=== PATIENT | female | born 1995 | race Caucasian/White ===

== ENCOUNTER 2024-01-08 18:45 | Emergency (ER) | payer BC, SELFPAY ==
[2024-01-08 18:47] VITALS: BP 146/85
--- NOTE | 2024-01-08 20:36 | ED.GENMED ---
History of Present Illness
General
Chief Complaint: Skin Surface Trauma
Source: patient
Exam Limitations: none
Time Seen by Provider: 01/08/24 20:09
Nursing documentation reviewed up to this point in time: agreed with
History of Present Illness
History of Present Illness:
28-year-old female presenting to the emergency department with laceration to left thumb. This occurred about 30 minutes prior to arrival as she was slicing an apple in her kitchen. She states she missed the apple and sliced her thumb. She was
able to somewhat control bleeding although came to the emergency department for further evaluation. Patient denies any numbness/tingling in digit or left hand. No other associated injuries. Last tetanus shot was 2 years ago. Patient is not on
any blood thinners.
Past History
Past History
ED Past Medical History: Other (Irregular menses. ovarian cyst, dehydration, migraines) and Other (renal stones)
ED Past Surgical History: None
Social History
Tobacco: Non-smoker
Alcohol: None
Personal: Single
Living: with family
Review of Systems
Review of Systems
Allergies reviewed?: Yes
All Other Systems: ROS reviewed and negative except as documented in HPI and ROS
Phy Exam
Physical Exam
Physical Exam:
Vitals: Patient's vital signs are stable. Afebrile
General: Patient is well appearing, no acute distress
Skin: Approximately 2 cm curved laceration to palmar aspect of medial distal thumb. Very minimal involvement of distal nail. No subungual hematoma.
Head: Normocephalic, atraumatic
Throat: Protecting airway
Neck: Normal ROM, no cervical spine tenderness
Cardiac: Regular rate
Pulm: No apparent respiratory distress
Abdomen: Nondistended
Extremities: Small laceration to left thumb as described above. Patient has full ability to flex and extend left thumb at both MCP and IP joints against resistance. Sensation fully intact. Capillary refill less than 2 seconds
Neuro: Grossly intact
Psychiatric: Normal affect.
Course
Vital Signs
Initial and Last Documented VS:
Initial Vital Signs
Temp Pulse Resp BP Pulse Ox
98.8 F 81 18 146/85 98
01/08/24 18:47 01/08/24 18:47 01/08/24 18:47 01/08/24 18:47 01/08/24 18:47
Last Documented Vital Signs
Temp Pulse Resp BP Pulse Ox
98.8 F 81 18 146/85 98
01/08/24 18:47 01/08/24 18:47 01/08/24 18:47 01/08/24 18:47 01/08/24 18:47
Procedures
Laceration Closure
Left Thumb:
Status of Wound: clean
Size of Wound in cm: 2
Description of Wound Edges: sharp
Preparation: cleaned with saline and cleaned with Betadine
Anesthesia: 1% Lidocaine
Revision/Debridement: routine- no revision
Wound exploration: explored to base- no FB
Type of Closure: single layer closure and interrupted sutures (3)
Skin Closure Material: 5-0 nylon
Number of sutures: 3
MDM/Problems Addressed
Differential Diagnosis Includes:
Not limited to: Laceration, etc.
MDM/Problems Addressed:
28-year-old female presenting with left thumb laceration occurring approximately 30 minutes prior to arrival slicing an apple in her kitchen. No other associated injuries. No numbness/tingling in left thumb. Patient has full range of motion left
thumb. Tetanus shot is up-to-date. Vital stable. On exam�there is an approximately 2 cm laceration at palmar aspect of left medial distal thumb. Very minimal involvement in distal nail. No involvement of nailbed. Minimal bleeding. No evidence
of tendon involvement. Left thumb neurovascular intact. Wound was irrigated thoroughly with normal saline. 1% plain lidocaine was injected into wound to anesthetize. 3 simple interrupted 5-0 nylon sutures were placed with great approximation of
wound edges and control bleeding. Patient tolerated procedure well. Patient bandaged with topical antibiotic, gauze wrap. Wound does not cross joint line�no indication for splint at this time. Wound care instructions and signs infection
discussed thoroughly with patient. She will stitches removed in 10 to 14 days with primary care. Return precautions discussed. Patient stable for discharge. Case discussed with attending physician.
Chronic conditions affecting care:
N/A
Acute Exacerbation and/or Progression of Chronic Illness:
N/A
*Pulse Oximetry
Patient hypoxic: no
*EKG
Interpreted by ED Provider?: NA
*Kennel Attendant Interpretation
Rate: Kennel Attendant- N/A
*Critical Care Note
Total Time (30-74mins, 75-104mins- exclusive of procedures): Not Applicable
ED Attending Note
-
Portions of this chart may have been created with voice recognition software.� Occasional wrong word or��sound alike� substitutions may have occurred due to the inherent limitations of voice recognition software.
Discharge Plan
Departure
Patient Disposition: Home (Routine Discharge)
Date of Disposition: 01/08/24
Time of Disposition: 21:10
Patient with high blood pressure during this ER visit?: Yes
Condition: Good
Covid-19: Not Applicable
Discharge Problem:
Laceration of left thumb
Instructions: Wound Care (DC), Laceration Repair With Stitches (DC)
Prescriptions:
No Action
ondansetron 4 MG tablet,disintegrating
4 mg PO TIDPRN PRN (Reason: nausea) Qty: 10 0RF
citalopram 20 MG tablet
20 mg PO HS
nadolol 40 MG tablet
40 mg PO HS
etonogestrel [Nexplanon] 68 MG implant
68 mg SQ
Patient Comments:
implanted in L arm 2 years ago
ondansetron 4 MG tablet,disintegrating
4 mg PO TIDPRN PRN (Reason: nausea/vomiting) Qty: 6 1RF
Referrals:
Vani Oneill CRNP [Family Provider] - Follow up in 10 days
Activity Restrictions/Additional Instructions:
Return to the emergency department with any intractable pain, numbness/tingling in left thumb, or any signs of infection including fever, chills, significant pain, redness, or swelling around wound, red streaking away from wound, pus draining from
wound, or any other concerns
-You came to the emergency department today with concerns of a laceration of your left thumb. This was closed with 3 stitches. The stitches will need to be removed in 10 to 14 days. You can have this done at a primary care, urgent care, or
emergency department. You should keep current bandage on for 24 hours. Then you should begin to remove bandage daily and wash gently with soap and water. You should keep covered with Band-Aid until stitches are removed. You can apply topical
antibiotic ointment.
Monitor symptoms closely and return to the emergency department any acute worsening/new symptoms or any other concerns
Interventions
Interventions:
*Risk Screen - Suicide Last Done: 01/08/24 18:47
*General Assessment Last Done: 01/08/24 18:47
*Neglect/Abuse Screening Last Done: 01/08/24 18:47
ED- Fall Risk Assessment Last Done: 01/08/24 20:10
*ED COVID-19 Vaccine History Last Done: 01/08/24 20:10
*Nursing Disposition Last Done: 01/08/24 21:19
ED-Skin Assessment Last Done: 01/08/24 20:10
Discharge Date and Time
Discharge Date/Time: 01/08/24 21:20
Print Language: [id number]
== END 2024-01-08 21:20 | disposition home or self-care (01) ==
LOC: EMR 18:45
PROVIDERS: EMERGENCY PHYSICIAN Emergency Medicine; FAMILY PHYSICIAN Nurse Practitioner
DX: S61.012A Laceration without foreign body of left thumb without damage to nail, initial encounter (principal); W45.8XXA Other foreign body or object entering through skin, initial encounter
CPT/HCPCS: 99282; 12001